=== PATIENT | female | born 1945 | race Hispanic/Latino ===

== ENCOUNTER 2017-07-31 09:17 | Emergency (ER) | payer SELFPAY ==
[2017-07-31 09:50] LABS: Bilirubin Negative (Negative); Blood, Urine Moderate (Negative); Glucose, Urine (Dipstick) Negative (Negative); Ketone, Urine Negative (Negative); Nitrite Negative (Negative); Protein, Urine (Dipstick) Negative (Neg-Trace); Urobilinogen 0.2 mg/dL (0.2-1.0)
[2017-07-31 09:52] LABS: Bacteria/HPF None Seen HPF (None Seen); Hyaline Casts/LPF 0-3 HYALINE CAST LPF (0-3 Hyaline); RBC/HPF 0-3 HPF (0-3); Squamous Epithelial None Seen HPF (0-3); WBC/HPF 0-3 HPF (0-3)
[2017-07-31 10:21] LABS: #Basophils 0.1 thou/uL (0.0-0.2); #Lymphocytes 0.9 thou/uL (1.20-3.40); #Monocytes 0.3 thou/uL (0.11-0.59); #Neutrophils 3.9 thou/uL (1.40-6.50); %Basophils 1.1 % (0.0-1.0); %Eosinophils 0.7 % (0.0-10.0); %Lymphocytes 17.6 % (21.0-51.0); %Monocytes 5.7 % (0.0-10.0); Hematocrit 45.1 % (36.0-47.0); Mean Platelet Volume 8.4 fL (7.4-10.4); Red Blood Cell (RBC) Count 4.63 mill/uL (4.20-5.40); White Blood Cell (WBC) Count 5.2 thou/uL (4.8-10.8)
[2017-07-31 10:28] LABS: PTT 32.4 SEC (22.9-36.1); Prothrombin Time 26.3 SEC (12.0-14.7)
[2017-07-31 10:41] LABS: ALT (SGPT) 14 U/L (8-55); AST (SGOT) 20 U/L (5-34); Alkaline Phosphatase 64 U/L (40-150); Anion Gap 12 mmol/L (10-20); BUN (Urea Nitrogen) 17 mg/dL (9.8-20.1); Bilirubin, Total 1.1 mg/dL (0.2-1.2); Calc. Creatinine Clearance 0 mL/min (70-130); Calcium 8.9 mg/dL (7.8-10.44); Carbon Dioxide 27 mmol/L (23-31); Chloride 106 mmol/L (98-107); Estimated GFR-MDRD 76; Globulin 3.2 g/dL (2.4-3.5); Protein, Total 7.1 g/dL (6.0-8.3)
--- NOTE | 2017-07-31 12:30 | CT ---
CT OF THE ABDOMEN AND PELVIS WITHOUT CONTRAST: Date: 07/31/17 COMPARISON: None. HISTORY: Vaginal bleeding that began yesterday with right-sided flank pain that began this morning. TECHNIQUE: Multiple contiguous axial images were obtained in a CT of the abdomen and pelvis without contrast. C oronal reformats were performed. FINDINGS: The patient is status post cholecystectomy. The liver, kidneys, adrenal glands, spleen, and pancreas are unremarkable, although evaluation is limited without IV contrast. No free air, free fluid, or s tranding changes are seen in the abdomen or pelvis. The large and small bowel are unremarkable. The appendix is normal. No abdominal or pelvic lymphaden opathy seen. Atherosclerotic calcifications are seen in the aorta. The visualized inferior thorax and abdominal wall soft tissues are unremarkable. Degenerative change s are seen in the spine. IMPRESSION: No evidence of acute intra-abdominal/pelvic abnormality. POS: [facility]
== END 2017-07-31 11:34 | disposition home or self-care (01) ==
LOC: ERS 09:17
DX: N95.0 Postmenopausal bleeding (principal); I48.91 Unspecified atrial fibrillation; E78.5 Hyperlipidemia, unspecified; Z79.01 Long term (current) use of anticoagulants; Z79.899 Other long term (current) drug therapy
CPT/HCPCS: 36415; 74176; 80053; 81003; 81015; 85025; 85610; 85730

== ENCOUNTER 2018-05-21 13:56 | Emergency (ER) | payer SELFPAY ==
--- NOTE | 2018-05-21 14:39 | RAD ---
RADIOGRAPH RIGHT KNEE 4 VIEWS: Date: 05/21/18 Time: 1325 hours HISTORY: 73-year-old female status post acute traumatic injury to the right knee from fall. COMPARISON: None. FINDINGS: Somewhat severe anterior, prepatellar superficial soft tissue swelling, extending inferiorly to invol ve the region anterior to the patellar tendon. Moderate osteophytosis at the patellofemoral compartment. Mild to moderate osteophytosis at medial an d lateral compartments without joint space narrowing. Osteopenia. No fracture or dislocation identifi ed. IMPRESSION: 1. Acute, traumatic, anterior superficial soft tissue hematoma. 2. No fracture identified. 3. 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 POS: [facility]
== END 2018-05-21 16:35 | disposition home or self-care (01) ==
LOC: ERS 13:56
DX: S80.01XA Contusion of right knee, initial encounter (principal); I10 Essential (primary) hypertension; I48.91 Unspecified atrial fibrillation; E78.5 Hyperlipidemia, unspecified; Z79.899 Other long term (current) drug therapy; Z79.01 Long term (current) use of anticoagulants; W19.XXXA Unspecified fall, initial encounter